=== PATIENT | male | born 1930 | race Caucasian/White ===

== ENCOUNTER 2018-08-01 06:49 | Outpatient (CLI) | payer MEDICARE, OTHER ==
[~2018-08-01 06:49] MED LIST: ASPI325T80 PO; CHOL200074 PO; CIPR500T87 PO; CYCL-259 PO; FELO2.5T PO; LEVO50TA PO; LOSA100T14 PO; METO50TA82 PO; REGADENOSON 0.4 MG/5 ML SYRINGE ONE; TRAM50TA2 PO
== END 2018-08-01 23:59 | disposition home or self-care (01) ==
LOC: CFH 06:49
PROVIDERS: ATTEND Internal Medicine Cardiovascular Disease
DX: I08.8 Other rheumatic multiple valve diseases (principal); I10 Essential (primary) hypertension; E11.9 Type 2 diabetes mellitus without complications
CPT/HCPCS: 78452; 93017; 93306; A9502; J2785

== ENCOUNTER 2018-12-15 08:09 | Outpatient (CLI) | payer MEDICARE, OTHER ==
[~2018-12-15 08:09] MED LIST changes: -REGADENOSON 0.4 MG/5 ML SYRINGE ONE
[2018-12-15 08:47] LABS: ANION GAP 7 mmol/L (5-15); CALCIUM 9.2 mg/dL (8.5-10.1); CHLORIDE 108 mmol/L (98-107); CREATININE 1.42 mg/dL (0.7-1.3)
[2018-12-15] MEDS ORDERED: VISIPAQUE 320 MG/ML, 150ML BOTTLE ONE (10:53)
== END 2018-12-15 23:59 | disposition home or self-care (01) ==
LOC: RAD 08:09
PROVIDERS: ATTEND Internal Medicine Cardiovascular Disease
DX: I65.23 Occlusion and stenosis of bilateral carotid arteries (principal); M47.816 Spondylosis without myelopathy or radiculopathy, lumbar region; I27.82 Chronic pulmonary embolism; I71.2 Thoracic aortic aneurysm, without rupture; E04.1 Nontoxic single thyroid nodule; J84.9 Interstitial pulmonary disease, unspecified; I35.2 Nonrheumatic aortic (valve) stenosis with insufficiency; I10 Essential (primary) hypertension; E11.9 Type 2 diabetes mellitus without complications
CPT/HCPCS: 36415; 71275; 74174; 80048; 93880; 94060; 94726; 94729; Q9967

== ENCOUNTER → 2019-01-13 | Outpatient (CLI) | payer MEDICARE, OTHER ==
[~2019-01-13] MED LIST changes: +DOBUTAMINE/D5W PMX 250 ML ONE
== END | disposition home or self-care (01) ==
LOC: CARD 10:11
PROVIDERS: ATTEND Internal Medicine Cardiovascular Disease
DX: I35.0 Nonrheumatic aortic (valve) stenosis (principal); E11.9 Type 2 diabetes mellitus without complications; I10 Essential (primary) hypertension
CPT/HCPCS: 93017; 93350; J1250

== ENCOUNTER 2019-02-13 14:13 | Outpatient (CLI) | payer MEDICARE, OTHER ==
[~2019-02-13 14:13] MED LIST changes: -DOBUTAMINE/D5W PMX 250 ML ONE
== END 2019-02-13 23:59 | disposition home or self-care (01) ==
LOC: CFH 14:13
PROVIDERS: ATTEND Internal Medicine
DX: I26.99 Other pulmonary embolism without acute cor pulmonale (principal); R91.8 Other nonspecific abnormal finding of lung field; R60.0 Localized edema
CPT/HCPCS: 93970

== ENCOUNTER 2019-03-11 07:55 | Day surgery (SDC) | payer MEDICARE, OTHER ==
[~2019-03-11] VITALS: Ht 167.6 cm; Wt 73.2 kg
[2019-03-11] MEDS ORDERED: SODIUM CHLORIDE 0.9% 1,000 ML IV SCH (08:22)
[2019-03-11 08:37] VITALS: BP 107/74
[2019-03-11] MEDS ORDERED: FURO20TA3 PO (08:46)
[2019-03-11] MEDS ORDERED: GLIM4TAB4 PO (08:46)
[2019-03-11] MEDS ORDERED: ASPI81TA45 PO (08:46)
[2019-03-11] MEDS ORDERED: OMEP40CA42 PO (08:46)
[2019-03-11] MEDS ORDERED: EMPA25TA PO (08:46)
[2019-03-11] MEDS ORDERED: ALLO100T30 PO (08:46)
[2019-03-11 09:00] LABS: BASOPHILS # (AUTO) 0.03 x10^3/uL (0-0.1); BASOPHILS % (AUTO) 0 % (0-1); EOSINOPHILS # (AUTO) 0.13 x10^3/uL (0-0.4); EOSINOPHILS % (AUTO) 2 % (1-7); LYMPHOCYTES # (AUTO) 1.88 x10^3/uL (1-3.4); LYMPHOCYTES % (AUTO) 23 % (22-44); MD NO; MEAN CORPUSCULAR HEMOGLOBIN 32.8 pg (27.5-34.5); MEAN CORPUSCULAR HGB CONC 33.9 g/dL (33.2-36.2); MEAN CORPUSCULAR VOLUME 96.8 fL (81-97); MEAN PLATELET VOLUME 10.1 fL (7.4-10.4); MONOCYTES # (AUTO) 0.87 x10^3/uL (0.2-0.8); MONOCYTES % (AUTO) 11 % (2-9); NEUTROPHILS # (AUTO) 5.41 x10^3/uL (1.8-6.8); NEUTROPHILS % (AUTO) 65 % (42-75); PLATELET COUNT 132 x10^3/uL (130-400); RED BLOOD COUNT 5.06 x10^6/uL (4.38-5.82)
[2019-03-11] MEDS ORDERED: FENTANYL PF 100 MCG/2ML ONE ×2 (09:32→13:58)
[2019-03-11] MEDS ORDERED: MIDAZOLAM 1 MG/ML, 5ML ONE ×2 (09:32→13:57)
[2019-03-11] MEDS ORDERED: LIDOCAINE 2%, 20ML ONE (09:33)
[2019-03-11] MEDS ORDERED: NITROGLYCERIN 5 MG/ML, 10ML ONE (09:33)
[2019-03-11 09:46] LABS: ANION GAP 9 mmol/L (5-15); CALCIUM 8.7 mg/dL (8.5-10.1); CHLORIDE 110 mmol/L (98-107); CREATININE 1.48 mg/dL (0.7-1.3)
[2019-03-11] MEDS ORDERED: VERAPAMIL 2.5 MG/ML, 2ML ONE (13:58)
[2019-03-11] MEDS ORDERED: HEPARIN 1,000 UNITS/ML, 10ML ONE (13:58)
[2019-03-11] MEDS ORDERED: BIVALIRUDIN 250 MG ONE (13:58)
[2019-03-11] MEDS ORDERED: TICAGRELOR 90 MG TABLET ONE (13:58)
[2019-03-11] MEDS ORDERED: LIDOCAINE-MPF 1%, 5ML ONE (13:58)
== END 2019-03-11 17:22 | disposition home or self-care (01) ==
LOC: CACL 07:55
PROVIDERS: ATTEND Internal Medicine Cardiovascular Disease
DX: I35.0 Nonrheumatic aortic (valve) stenosis (principal); I25.10 Atherosclerotic heart disease of native coronary artery without angina pectoris; I74.11 Embolism and thrombosis of thoracic aorta; I48.91 Unspecified atrial fibrillation; I10 Essential (primary) hypertension; E03.9 Hypothyroidism, unspecified; M10.9 Gout, unspecified; E11.9 Type 2 diabetes mellitus without complications; I25.2 Old myocardial infarction; Z79.82 Long term (current) use of aspirin; Z79.84 Long term (current) use of oral hypoglycemic drugs
CPT/HCPCS: 36415; 80048; 85025; 93454; 99156; C1769; C1894; J1644; J2250; J3010; Q9967; J0583

== ENCOUNTER 2019-04-01 14:18 | Outpatient (CLI) | payer MEDICARE, OTHER ==
[~2019-04-01 14:18] MED LIST changes: +ALLO100T30 PO; +ASPI81TA45 PO; +EMPA25TA PO; -FELO2.5T PO; +FELO2.5T4 PO; +FURO20TA3 PO; +GLIM4TAB8 PO; +OMEP40CA42 PO
== END 2019-04-01 23:59 | disposition home or self-care (01) ==
LOC: CFH 14:18
PROVIDERS: ATTEND Internal Medicine
DX: I71.2 Thoracic aortic aneurysm, without rupture (principal); I25.10 Atherosclerotic heart disease of native coronary artery without angina pectoris; E04.1 Nontoxic single thyroid nodule; R59.9 Enlarged lymph nodes, unspecified; K86.89 Other specified diseases of pancreas
CPT/HCPCS: 71250

== ENCOUNTER → 2019-06-29 | Outpatient (CLI) | payer MEDICARE, OTHER | END | disposition home or self-care (01) | LOC: CFH 10:41 | PROVIDERS: ATTEND Internal Medicine | DX: R91.8 Other nonspecific abnormal finding of lung field (principal); I35.0 Nonrheumatic aortic (valve) stenosis; N18.9 Chronic kidney disease, unspecified; I48.91 Unspecified atrial fibrillation; I26.99 Other pulmonary embolism without acute cor pulmonale; R59.0 Localized enlarged lymph nodes; J90 Pleural effusion, not elsewhere classified | CPT/HCPCS: 71250 ==

== ENCOUNTER 2019-07-08 10:52 | Day surgery (SDC) | payer MEDICARE, OTHER ==
[2019-07-06 14:17] LABS: ANION GAP 6 mmol/L (5-15); CALCIUM 9.2 mg/dL (8.5-10.1); CHLORIDE 104 mmol/L (98-107)
[2019-07-06 14:20] LABS: ALANINE AMINOTRANSFERASE 52 U/L (12-78); ALKALINE PHOSPHATASE 173 U/L (45-117); BILIRUBIN,TOTAL 0.6 mg/dL (0.2-1.0); CREATININE 1.61 mg/dL (0.7-1.3); TOTAL PROTEIN 6.8 g/dL (6.4-8.2)
[~2019-07-08] VITALS: Ht 167.6 cm; Wt 70.4 kg
[2019-07-08] MEDS ORDERED: LACTATED RINGERS 1,000 ML IV SCH (11:10)
[2019-07-08 11:17] VITALS: BP 113/82
[2019-07-08] MEDS ORDERED: CHLORHEXIDINE 15 ML UDC MM ONE ×2 (11:30)
[2019-07-08] MEDS ORDERED: LIDOCAINE-MPF 1%, 2ML INFIL ONE (11:30)
[2019-07-08] MEDS ORDERED: hydrALAzine 20 MG/ML, 1ML IV PRN (15:30)
[2019-07-08] MEDS ORDERED: FENTANYL PF 100 MCG/2ML IV PRN (15:30)
[2019-07-08] MEDS ORDERED: ALBUTEROL SULFATE 2.5 MG/3 ML NPPB PRN (15:30)
[2019-07-08] MEDS ORDERED: ONDANSETRON 2MG/ML, 2ML IVPush PRN (15:30)
[2019-07-08] MEDS ORDERED: LABETALOL 5MG/ML, 20ML IV PRN (15:30)
[2019-08-06] MEDS ORDERED: APIX5TAB PO (13:50)
[2019-08-06] MEDS ORDERED: ATORVASTATIN (14:00)
== END 2019-07-08 18:15 | disposition home or self-care (01) ==
LOC: OUT 10:52
PROVIDERS: ATTEND Internal Medicine
DX: R91.8 Other nonspecific abnormal finding of lung field (principal); Z11.59 Encounter for screening for other viral diseases; C34.31 Malignant neoplasm of lower lobe, right bronchus or lung; E11.22 Type 2 diabetes mellitus with diabetic chronic kidney disease; I12.9 Hypertensive chronic kidney disease with stage 1 through stage 4 chronic kidney disease, or unspecified chronic kidney disease; N18.9 Chronic kidney disease, unspecified; I48.91 Unspecified atrial fibrillation; Z79.01 Long term (current) use of anticoagulants; Z86.711 Personal history of pulmonary embolism
CPT/HCPCS: 31624; 31627; 31628; 31629; 36415; 71045; 80053; 82962; 88112; 88172; 88173; 88177; 88305; 88341; 88342; 93005; J2704; J3010; J7120; 31625; 76000

== ENCOUNTER 2019-07-24 09:58 | Observation (INO) | payer MEDICARE, OTHER ==
[~2019-07-24] VITALS: Ht 167.6 cm; Wt 67.1 kg
[2019-07-24] MEDS ORDERED: SODIUM CHLORIDE FLUSH 10ML SYR IVF ONE (10:30)
[2019-07-24] MEDS ORDERED: SODIUM CHLORIDE 0.9% 1,000ML IVBOLUS ONE (10:30)
--- NOTE | 2019-07-24 10:39 | NUR ---
BIB EMS FOR NEW ONSET WEAKNESS THIS AM. PT HYPOTENSIVE 70/50. NEW ONSET AFIB 80-130, GIVEN 250 ML, UP TO 90/66. RULE OUT FOR LUNG CANCER W PCP,
--- NOTE | 2019-07-24 10:55 | NUR ---
PT DENIES CP, COUGH SOB OR FEVER. PT NOT IN DISRESS. BP LOW UPON ARRIVAL 92/60, HR 100-130
[2019-07-24 11:01] LABS: BASOPHILS # (AUTO) 0.02 x10^3/uL (0-0.1); BASOPHILS % (AUTO) 0 % (0-1); EOSINOPHILS # (AUTO) 0.05 x10^3/uL (0-0.4); EOSINOPHILS % (AUTO) 1 % (1-7); LYMPHOCYTES # (AUTO) 1.14 x10^3/uL (1-3.4); LYMPHOCYTES % (AUTO) 14 % (22-44); MD NO; MEAN CORPUSCULAR HEMOGLOBIN 32.9 pg (27.5-34.5); MEAN CORPUSCULAR HGB CONC 33.6 g/dL (33.2-36.2); MEAN CORPUSCULAR VOLUME 97.9 fL (81-97); MEAN PLATELET VOLUME 9.4 fL (7.4-10.4); MONOCYTES # (AUTO) 0.66 x10^3/uL (0.2-0.8); MONOCYTES % (AUTO) 8 % (2-9); NEUTROPHILS % (AUTO) 77 % (42-75); PLATELET COUNT 164 x10^3/uL (130-400); RED BLOOD COUNT 5.09 x10^6/uL (4.38-5.82); RED CELL DISTRIBUTION WIDTH 13.4 % (9.4-14.8)
[2019-07-24 11:06] LABS: ALBUMIN 2.6 g/dL (3.4-5.0); ANION GAP 14 mmol/L (5-15); CALCIUM 9.1 mg/dL (8.5-10.1); CHLORIDE 110 mmol/L (98-107)
[2019-07-24 11:12] LABS: CREATININE 1.19 mg/dL (0.7-1.3); TROPONIN I 0.029 ng/mL (0.000-0.045)
[2019-07-24] MEDS ORDERED: METOPROLOL 1 MG/ML, 5ML ONE (11:44)
--- NOTE | 2019-07-24 11:51 | NUR ---
MD BEDSIDE. MEDICATED PER ORDERS. PT SLEEPING. NO NEEDS AT THIS TIME. SIDE RAILS X2. CALL LIGHT IN REACH
[2019-07-24] MEDS ORDERED: SODIUM CHLORIDE 0.9%, 500ML IVBOLUS ONE (12:00)
[2019-07-24] MEDS ORDERED: METOPROLOL 1 MG/ML, 5ML IVPush ONE (12:00)
--- NOTE | 2019-07-24 12:16 | NUR ---
BREAK RN: SPOKE WITH DAUGHTER AT [phone], EXPLAINED UNSURE IF ADMIT OR DISCHARGE. SHE WILL BE CALLING BACK TO TALK PRIMARY MD
--- NOTE | 2019-07-24 13:08 | NUR ---
PT RESTING, VSS. PLAN FOR ADMIT
--- NOTE | 2019-07-24 14:32 | NUR ---
REPORT X2
[2019-07-24] MEDS ORDERED: LABETALOL 5MG/ML, 20ML IVPush PRN (15:30)
[2019-07-24] MEDS ORDERED: ACETAMINOPHEN 325 MG TABLET PO PRN (15:30)
[2019-07-24] MEDS ORDERED: GLUCAGON 1 MG IM PRN (15:30)
[2019-07-24] MEDS ORDERED: hydrALAzine 20 MG/ML, 1ML IVPush PRN (15:30)
[2019-07-24] MEDS ORDERED: POLYETHYLENE GLYCOL 17 GM PACKET PO PRN (15:30)
[2019-07-24] MEDS ORDERED: DEXTROSE 4 GM TAB.CHEW PO PRN (15:30)
[2019-07-24] MEDS ORDERED: DEXTROSE 50%, 50ML SYRINGE IVPush PRN (15:30)
[2019-07-24 16:00] VITALS: BP 106/74
[2019-07-24] MEDS: INSULIN LISPRO 100 UNITS/ML, PEN SQ-INSULIN SCH ×2 (16:00→21:20)
[2019-07-24] MEDS ORDERED: METOPROLOL 1 MG/ML, 5ML IVPush PRN (16:00)
[2019-07-24] MEDS: SODIUM CHLORIDE 0.9% 1,000 ML IV SCH (16:16)
[2019-07-24 17:51] LABS: MICROSCOPIC NOT IND
[2019-07-24] MEDS: METOPROLOL TARTRATE 50 MG TAB PO SCH (21:20)
[2019-07-24] MEDS: APIXABAN 5 MG TABLET PO SCH (21:20)
[2019-07-24] MEDS: SODIUM CHLORIDE FLUSH 10ML SYR IVF SCH (21:21)
[2019-07-24 21:25] VITALS: BP 111/67
[2019-07-25 00:30] VITALS: BP 126/89
[2019-07-25] MEDS: SODIUM CHLORIDE 0.9% 1,000 ML IV SCH (04:14)
[2019-07-25 05:09] LABS: BASOPHILS # (AUTO) 0.02 x10^3/uL (0-0.1); BASOPHILS % (AUTO) 0 % (0-1); EOSINOPHILS # (AUTO) 0.09 x10^3/uL (0-0.4); EOSINOPHILS % (AUTO) 1 % (1-7); LYMPHOCYTES # (AUTO) 1.32 x10^3/uL (1-3.4); LYMPHOCYTES % (AUTO) 15 % (22-44); MD NO; MEAN CORPUSCULAR HEMOGLOBIN 32.1 pg (27.5-34.5); MEAN CORPUSCULAR HGB CONC 32.3 g/dL (33.2-36.2); MEAN CORPUSCULAR VOLUME 99.4 fL (81-97); MEAN PLATELET VOLUME 9.6 fL (7.4-10.4); MONOCYTES % (AUTO) 9 % (2-9); NEUTROPHILS % (AUTO) 75 % (42-75); PLATELET COUNT 154 x10^3/uL (130-400); RED BLOOD COUNT 4.82 x10^6/uL (4.38-5.82); RED CELL DISTRIBUTION WIDTH 13.8 % (9.4-14.8)
[2019-07-25 05:18] LABS: ANION GAP 9 mmol/L (5-15); CALCIUM 8.6 mg/dL (8.5-10.1); CHLORIDE 111 mmol/L (98-107)
[2019-07-25 05:20] LABS: CREATININE 1.11 mg/dL (0.7-1.3)
[2019-07-25] MEDS ORDERED: LEVOTHYROXINE 50 MCG TABLET PO SCH (06:00)
[2019-07-25] MEDS: INSULIN LISPRO 100 UNITS/ML, PEN SQ-INSULIN SCH ×2 (07:00→12:15)
[2019-07-25] MEDS ORDERED: OMEPRAZOLE 20 MG CAPSULE.DR PO SCH (07:00)
[2019-07-25] MEDS ORDERED: CHOLECALCIFEROL 1,000 UNIT TABLET PO SCH (09:00)
[2019-07-25] MEDS: SODIUM CHLORIDE FLUSH 10ML SYR IVF SCH (09:00)
[2019-07-25] MEDS ORDERED: ASPIRIN 81 MG TABLET EC PO SCH (09:00)
[2019-07-25] MEDS ORDERED: FUROSEMIDE 20 MG TABLET PO SCH (09:00)
[2019-07-25] MEDS ORDERED: ALLOPURINOL 100 MG TABLET PO SCH (09:00)
[2019-07-25] MEDS ORDERED: GLIMEPIRIDE 4 MG TABLET PO SCH (09:00)
[2019-07-25] MEDS ORDERED: LOSARTAN 100 MG TAB PO SCH (09:00)
[2019-07-25] MEDS ORDERED: TEMPLATE NON-FORMULARY MED. (Felodipine (Felodipine Er) 5 MG) PO SCH (09:00)
[2019-07-25 09:05] VITALS: BP 119/80
[2019-07-25] MEDS: APIXABAN 5 MG TABLET PO SCH (09:07)
[2019-07-25] MEDS: METOPROLOL TARTRATE 50 MG TAB PO SCH (09:08)
[2019-07-25 15:18] VITALS: BP 117/75
== END 2019-07-25 16:45 | disposition home or self-care (01) ==
LOC: ED 13:35 → EDIP 13:55 → INTOOBSV 13:55 → 5SO 16:01 → DCLOUNGE 07-25 16:41
PROVIDERS: ADMIT Family Medicine; ATTEND Family Medicine
DX: I48.91 Unspecified atrial fibrillation (principal); E86.0 Dehydration; I12.9 Hypertensive chronic kidney disease with stage 1 through stage 4 chronic kidney disease, or unspecified chronic kidney disease; E11.22 Type 2 diabetes mellitus with diabetic chronic kidney disease; E03.9 Hypothyroidism, unspecified; C34.31 Malignant neoplasm of lower lobe, right bronchus or lung; N18.9 Chronic kidney disease, unspecified; Z79.01 Long term (current) use of anticoagulants; Z79.84 Long term (current) use of oral hypoglycemic drugs; Z85.118 Personal history of other malignant neoplasm of bronchus and lung; Z79.899 Other long term (current) drug therapy
CPT/HCPCS: 36415; 71045; 80048; 81003; 82040; 82962; 83735; 84100; 84443; 84484; 85025; 93005; 96361; 96374; 97163; 99285; G0378; J1815; J7030; J7040

== ENCOUNTER 2019-07-28 07:32 | Outpatient (CLI) | payer MEDICARE, OTHER ==
[2019-08-06] MEDS ORDERED: APIX5TAB PO (13:50)
[2019-08-06] MEDS ORDERED: ATORVASTATIN (14:00)
== END 2019-07-28 23:59 | disposition home or self-care (01) ==
LOC: PETCFH 07:32
PROVIDERS: ATTEND Nurse Practitioner
DX: C34.31 Malignant neoplasm of lower lobe, right bronchus or lung (principal); R91.8 Other nonspecific abnormal finding of lung field; I10 Essential (primary) hypertension; R73.9 Hyperglycemia, unspecified
CPT/HCPCS: 78815; A9552